=== PATIENT | male | born 1980 | race African-American/Black ===

== ENCOUNTER 2018-09-10 08:00 | Outpatient (CLI) | payer MEDICAID, OTHER ==
[2018-09-10 18:02] LABS: BASOPHILS # (AUTO) 0.1 10^3/uL (0.0-0.1); BASOPHILS % (AUTO) 0.9 %; EOSINOPHILS # (AUTO) 0.1 10^3/uL (0.0-0.7); EOSINOPHILS % (AUTO) 1.9 %; HGB - HEMOGLOBIN 11.4 g/dL (14.0-18.0); MEAN CORPUSCULAR HEMOGLOBIN 28.9 pg (27.0-31.0); MEAN CORPUSCULAR VOLUME 90.4 fL (80.0-94.0); MEAN PLATELET VOLUME 10.2 fL (7.4-11.4); MONOCYTES # (AUTO) 0.7 10^3/uL (0.0-1.0); MONOCYTES % (AUTO) 11.7 %; NEUTROPHILS # (AUTO) 3.1 10^3/uL (1.5-6.6); NEUTROPHILS % (AUTO) 51.5 %; PLT - PLATELET COUNT 200 10^3/uL (130-450); RED BLOOD COUNT 3.92 10^6/uL (4.70-6.10); RED CELL DISTRIBUTION WIDTH 15.1 % (12.0-15.0)
== END 2018-09-10 08:01 | disposition home or self-care (01) ==
LOC: LAB.S 08:00
PROVIDERS: ATTEND Nurse Practitioner Family
DX: R05 Cough (principal)
CPT/HCPCS: 36415; 85025; 87070; 87205

== ENCOUNTER 2018-09-11 09:52 | Outpatient (CLI) | payer MEDICAID ==
--- NOTE | 2018-09-11 13:53 | XRAY Report ---
Reason: COUGH NOS Procedure Date: 09/11/2018 Accession Number: [id number] / [id number] Procedure: XR - Chest 2 View X-Ray CPT Code: 89732 FULL RESULT: EXAM: CHEST RADIOGRAPHY EXAM DATE: 09/11/2018 10:53 AM. CLINICAL HISTORY: COUGH NOS. COMPARISON: None. TECHNIQUE: 2 views. FINDINGS: Lungs/Pleura: No focal opacities evident. No pleural effusion. No pneumothorax. High volumes. Mediastinum: Heart and mediastinal contours are unremarkable. Other: None. IMPRESSION: No acute cardiopulmonary abnormality. RADIA
== END 2018-09-11 09:53 | disposition home or self-care (01) ==
LOC: DI 09:52
PROVIDERS: ATTEND Nurse Practitioner Family
DX: R05 Cough (principal)
CPT/HCPCS: 71046

== ENCOUNTER 2018-11-03 15:51 | Emergency (ER) | payer MEDICAID ==
--- NOTE | 2018-11-03 15:58 | ED Physician Documentation ---
PD HPI URI - Stated complaint Stated Complaint: SOA/COUGH - Chief complaint Chief Complaint: Resp - History obtained from History obtained from: Patient - History of Present Illness Timing - onset: How many months ago (several) Timing duration: Months (several) Timing details: Gradual onset, Still present Associated symptoms: Fever, Chills, Productive cough, Dyspnea. No: Hemoptysis, Chest pain, Bilateral edema Contributing factors: No: Sick contact, Travel, Immunocompromised, COPD / asthma Improves by: No: Rest Worsened by: Activity Similar symptoms before: Has not had sx before Recently seen: Not recently seen Review of Systems Constitutional: reports: Fever, Chills, Myalgias, Fatigue Nose: reports: Congestion. denies: Rhinorrhea / runny nose Throat: denies: Sore throat Cardiac: denies: Chest pain / pressure, Palpitations, Pedal edema, Calf pain Respiratory: reports: Dyspnea, Cough, Wheezing GI: denies: Abdominal Pain, Nausea, Vomiting, Diarrhea Skin: denies: Rash, Lesions Neurologic: reports: Generalized weakness. denies: Altered mental status, Headache Psychiatric: denies: Depressed, Anxiety, Insomnia Endocrine: reports: Weight loss (he says about 35 lbs in the past 3 months) Immunocompromised: denies: Immunocompromised PD PAST MEDICAL HISTORY - Past Medical History Cardiovascular: None Respiratory: None Neuro: None Endocrine/Autoimmune: None - Past Surgical History Past Surgical History: Yes - Present Medications Home Medications: Ambulatory Orders Medication Instructions Recorded Confirmed Albuterol Sulf [Ventolin Hfa 2 - 3 puffs INH Q4HR PRN #1 inhaler 11/03/18 Inhaler] Benzonatate [Tessalon Perle] 100 - 200 mg PO TID PRN #30 capsule 11/03/18 Dexamethasone [Decadron] 4 mg PO DAILY #7 tablet 11/03/18 Doxycycline Hyclate 100 mg PO BID #20 capsule 11/03/18 guaiFENesin/CODEINE [Robitussin AC] 5 ml PO Q6H PRN #120 ml 11/03/18 - Allergies Allergies/Adverse Reactions: Allergies Allergy/AdvReac Type Severity Reaction Status Date / Time No Known Drug Allergies Allergy Verified 11/03/18 15:55 - Social History Does the pt smoke?: Yes Smoking Status: Current every day smoker Does the pt drink ETOH?: No Does the pt have substance abuse?: No - Immunizations Immunizations are current?: Yes Immunizations: TDAP current <10years - POLST Patient has POLST: No PD ED PE NORMAL - Vitals Vital signs reviewed: Yes - General General: Alert and oriented X 3, No acute distress, Well developed/nourished - HEENT HEENT: Pharynx benign - Neck Neck: Supple, no meningeal sign, No adenopathy - Cardiac Cardiac: RRR (mild tachycardia), No murmur - Respiratory Respiratory: Clear bilaterally (with some expiratory wheezing) - Abdomen Abdomen: Soft, Non tender - Back Back: No CVA TTP - Derm Derm: Normal color, Warm and dry, No rash - Extremities Extremities: No tenderness to palpate, Normal ROM s pain, No edema, No calf tenderness / cord - Neuro Neuro: Alert and oriented X 3, No motor deficit, Normal speech Results - Vitals Vitals: Oxygen O2 Source Room air - Labs Labs: Laboratory Tests 11/03/18 11/03/18 11/03/18 16:28 16:28 16:28 WBC 6.1 RBC 4.40 L Hgb 13.1 L Hct 38.9 L MCV 88.6 MCH 29.7 MCHC 33.5 RDW 15.9 H Plt Count 208 MPV 8.8 Neut # (Auto) 3.7 Lymph # (Auto) 1.5 [place] # (Auto) 0.5 Eos # (Auto) 0.3 Baso # (Auto) 0.1 Absolute Nucleated RBC 0.00 Nucleated RBC % 0.0 Sodium 134 L Potassium 4.6 Chloride 100 L Carbon Dioxide 26 Anion Gap 8.0 BUN 21 H Creatinine 0.9 Estimated GFR (MDRD) 114 Glucose 156 H Calcium 9.2 Total Bilirubin 0.7 AST 78 H ALT 44 Alkaline Phosphatase 87 Total Protein 8.1 Albumin 4.0 Globulin 4.1 Albumin/Globulin Ratio 1.0 Lipase 29 TSH 0.79 - Rads (name of study) chest xray Radiology: Prelim report reviewed (no infiltrates nor acute process), See rad report PD MEDICAL DECISION MAKING - ED course Complexity details: reviewed results (CXR is normal. Labs are okay. Presume ongoing bronchitis, though not sure if this accounts for all his illness, weakness and weight loss. ), considered differential, d/w patient Departure - Departure Disposition: 01 Home, Self Care Clinical Impression: Persistent cough for 3 weeks or longer, Bronchitis Condition: Stable Record reviewed to determine appropriate education?: Yes Instructions: ED Bronchitis Asthmatic Follow-Up: Laurie Srivastava ARNP [Primary Care Provider] - Prescriptions: Albuterol Sulf [Ventolin Hfa Inhaler] 2 - 3 puffs INH Q4HR PRN #1 inhaler PRN Reason: Shortness Of Air/Wheezing Benzonatate [Tessalon Perle] 100 - 200 mg PO TID PRN #30 capsule PRN Reason: Cough Dexamethasone [Decadron] 4 mg PO DAILY #7 tablet Doxycycline Hyclate 100 mg PO BID #20 capsule guaiFENesin/CODEINE [Robitussin AC] 5 ml PO Q6H PRN #120 ml PRN Reason: Cough Comments: Your chest x-ray is clear without any signs of pneumonia nor other obvious lung disease. It does sound like you have bronchitis and given the duration of it would be concerned about a infectious cause. Your blood tests are normal at this time. Would have you take doxycycline twice daily for 10 days as an antibiotic. Use albuterol inhaler 2 puffs 4 times a day and extra times as needed for wheezing and cough. Decadron steroid for inflammation of the bronchials daily for a week. Add Tessalon if needed for cough and then cough syrup if needed additionally. Follow-up with your primary care if not improved over the next week. Discharge Date/Time: 11/03/18 17:59
[2018-11-03] MEDS ORDERED: ALBUTEROL NEB 2.5 MG/3 ML INH STA (16:19)
[2018-11-03] MEDS ORDERED: DEXAMETHASONE 10 MG/ML VIAL PO STA (16:19)
[2018-11-03] MEDS ORDERED: BENZONATATE 100 MG CAPSULE PO STA (16:19)
[2018-11-03 16:33] LABS: BASOPHILS # (AUTO) 0.1 10^3/uL (0.0-0.1); BASOPHILS % (AUTO) 1.3 %; EOSINOPHILS # (AUTO) 0.3 10^3/uL (0.0-0.7); EOSINOPHILS % (AUTO) 5.7 %; HGB - HEMOGLOBIN 13.1 g/dL (14.0-18.0); LYMPHOCYTES # (AUTO) 1.5 10^3/uL (1.5-3.5); LYMPHOCYTES % (AUTO) 24.4 %; MEAN CORPUSCULAR HEMOGLOBIN 29.7 pg (27.0-31.0); MEAN CORPUSCULAR HGB CONC 33.5 g/dL (32.0-36.0); MEAN CORPUSCULAR VOLUME 88.6 fL (80.0-94.0); MEAN PLATELET VOLUME 8.8 fL (7.4-11.4); MONOCYTES # (AUTO) 0.5 10^3/uL (0.0-1.0); MONOCYTES % (AUTO) 8.1 %; NEUTROPHILS # (AUTO) 3.7 10^3/uL (1.5-6.6); NEUTROPHILS % (AUTO) 60.5 %; PLT - PLATELET COUNT 208 10^3/uL (130-450); RED CELL DISTRIBUTION WIDTH 15.9 % (12.0-15.0); WHITE BLOOD COUNT 6.1 x10^3/uL (4.8-10.8)
[2018-11-03 16:50] LABS: BILIRUBIN,TOTAL 0.7 mg/dL (0.2-1.0); CALCIUM 9.2 mg/dL (8.5-10.3); CREATININE 0.9 mg/dL (0.6-1.2); TOTAL PROTEIN 8.1 g/dL (6.7-8.2)
--- NOTE | 2018-11-03 17:01 | XRAY Report ---
Reason: cough for 4 months Procedure Date: 11/03/2018 Accession Number: [id number] / [id number] Procedure: XR - Chest 2 View X-Ray CPT Code: 96808 FULL RESULT: EXAM: CHEST RADIOGRAPHY EXAM DATE: 11/03/2018 04:40 PM. CLINICAL HISTORY: Nonproductive cough for 4 months. Shortness of air for 2 months. Increased shortness of air today. COMPARISON: CHEST 2 VIEW 09/11/2018 11:08 AM. TECHNIQUE: 2 views. FINDINGS: Lungs/Pleura: No focal opacities evident. No pleural effusion. No pneumothorax. Normal volumes. Mediastinum: Heart and mediastinal contours are unremarkable. Other: None. IMPRESSION: 1. No acute disease in the chest. RADIA
[2018-11-03] MEDS ORDERED: DOXYCYCLINE 100 MG TABLET PO STA (17:41)
[2018-11-03 17:58] VITALS: BP 138/84
== END 2018-11-03 17:59 | disposition home or self-care (01) ==
LOC: ED 15:51
DX: J40 Bronchitis, not specified as acute or chronic (principal); F17.200 Nicotine dependence, unspecified, uncomplicated
CPT/HCPCS: 36415; 71046; 80053; 83690; 84443; 85025; 94640; 99283; A9270